=== PATIENT | female | born 1965 | race Caucasian/White ===

== ENCOUNTER 2018-07-22 11:51 | Emergency (ER) | payer BC, OTHER ==
--- NOTE | 2018-07-22 13:28 | UC ---
FLU HPI - HPI Summary HPI Summary: 52 yo female presents with fatigue, low grade fever, body aches, and loose stools since yesterday. She tells me that her symptoms were sudden onset. 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 She is concerned that she may have the flu as well. Has been taking ibuprofen for her symptoms with little relief. Denies SOB, rash, vomiting, abdominal pain, dysuria. - History of Current Complaint Stated Complaint: FLU SXS Time Seen by Provider: 07/22/18 13:28 Hx Obtained From: Patient Hx Last Menstrual Period: UTERINE ABLATION Onset/Duration: Sudden Onset Severity Currently: Moderate Severity Initially: Moderate Pain Intensity: 6 Pain Scale Used: 0-10 Numeric - Allergy/Home Medications Allergies/Adverse Reactions: Allergies Allergy/AdvReac Type Severity Reaction Status Date / Time No Known Allergies Allergy Verified 07/22/18 13:31 Home Medications: Home Medications Magnesium Oxide [Magnesium] 400 mg PO DAILY 07/22/18 [History Confirmed 07/22/18 ] Rosuvastatin Calcium 5 mg PO DAILY 07/22/18 [History Confirmed 07/22/18] PMH/Surg Hx/FS Hx/Imm Hx - Additional Past Medical History Additional PMH: Chronic pain Endocrine History: Dyslipidemia - Surgical History Surgical History: Yes Surgery Procedure, Year, and Place: Uterine Ablation, 2012. [place] Procedure ( Plantar Fasciatis) - Right, 2013 - Family History Known Family History: Positive: Cardiac Disease, Hypertension, Diabetes, Renal Disease - Social History Occupation: Employed Full-time Lives: With Family Alcohol Use: Occasionally Substance Use Type: None Smoking Status (MU): Never Smoked Tobacco Review of Systems All Other Systems Reviewed And Are Negative: Yes Constitutional: Positive: Fever, Chills, Fatigue, Other - Body aches Skin: Positive: Negative Eyes: Positive: Negative ENT: Positive: Negative Respiratory: Positive: Negative Cardiovascular: Positive: Negative Neurovascular: Positive: Negative Neurological: Positive: Negative Psychological: Positive: Negative Physical Exam - Summary Physical Exam Summary: GENERAL: NAD. WDWN. No pain distress. SKIN: No rashes, sores, lesions, or open wounds. HEENT: Head: AT/NC Eyes: EOM intact. Conjunctiva clear without inflammation or discharge. Ears: Hearing grossly normal. TMs intact, no bulging, erythema, or edema. Nose: Nasal mucosa pink and moist. NTTP maxillary and frontal sinus. Throat: Posterior oropharynx without exudates, erythema, or tonsillar enlargement. Uvula midline. NECK: Supple. Nontender. No lymphadenopathy. CHEST: CTAB. No r/r/w. No accessory muscle use. Breathing comfortably and in no distress. CV: RRR. Without m/r/g. Pulses intact. Cap refill <2seconds NEURO: Alert. PSYCH: Age appropriate behavior. Triage Information Reviewed: Yes Vital Signs: Vital Signs: Temp Pulse Resp BP Pulse Ox 99.3 F 87 16 121/73 99 07/22/18 13:32 07/22/18 13:32 07/22/18 13:32 07/22/18 13:32 07/22/18 13:32 Laboratory Tests 07/22/18 13:43 Influenza A (Rapid) Negative Influenza B (Rapid) Negative Vital Signs Reviewed: Yes Flu Course/Dx - Course Course Of Treatment: POC flu negative. Suspect viral or flu-like illness. Advised to rest and drink plenty of clear fluids. - Differential Dx/Diagnosis Provider Diagnosis: Viral syndrome Discharge - Sign-Out/Discharge Documenting (check all that apply): Patient Departure All imaging exams completed and their final reports reviewed: No Studies - Discharge Plan Condition: Stable Disposition: HOME Patient Education Materials: Viral Syndrome (ED) Forms: *Work Release Referrals: Jeri Flores NP [Primary Care Provider] - Additional Instructions: If you develop a fever, shortness of breath, chest pain, new or worsening symptoms - please call your PCP or go to the ED. - Billing Disposition and Condition Condition: STABLE Disposition: Home
[2018-07-22 13:36] VITALS: BP 121/73
[2018-07-22 13:55] LABS: Influenza A Molecular NEGATIVE (Negative); Influenza B Molecular NEGATIVE (Negative)
== END 2018-07-22 14:07 | disposition home or self-care (01) ==
LOC: UCCORT 11:51
DX: R53.83 Other fatigue (principal); B34.9 Viral infection, unspecified; R52 Pain, unspecified; R19.7 Diarrhea, unspecified; E78.5 Hyperlipidemia, unspecified; Z79.899 Other long term (current) drug therapy
CPT/HCPCS: 99211; G0463

== ENCOUNTER 2019-04-27 15:36 | Emergency (ER) | payer BC ==
[2019-04-27 16:32] VITALS: BP 132/82
--- NOTE | 2019-04-27 17:09 | UC ---
Complaint Female HPI - HPI Summary HPI Summary: 53-year-old female comes in with a chief complaint of burning with urination and increased urinary frequency. Patient's had urinary tract infections in the past and she feels like that's what this is. She does get some suprapubic tenderness at times. No constant anterior abdominal pain. No flank pain. No fevers. - History Of Current Complaint Chief Complaint: UCGU Stated Complaint: URINARY Time Seen by Provider: 04/27/19 16:59 Hx Last Menstrual Period: doesn't get Pain Intensity: 2 - Allergies/Home Medications Allergies/Adverse Reactions: Allergies Allergy/AdvReac Type Severity Reaction Status Date / Time No Known Allergies Allergy Verified 04/27/19 16:33 PMH/Surg Hx/FS Hx/Imm Hx Previously Healthy: Yes - Surgical History Surgical History: Yes Surgery Procedure, Year, and Place: Uterine Ablation, 2012. [place] Procedure ( Plantar Fasciatis) - Right, 2013. LEFT WRIST x2 - Family History Known Family History: Positive: None, Cardiac Disease, Hypertension, Diabetes, Renal Disease - Social History Alcohol Use: Occasionally Substance Use Type: None Smoking Status (MU): Never Smoked Tobacco Review of Systems All Other Systems Reviewed And Are Negative: Yes Constitutional: Positive: Negative Skin: Positive: Negative Eyes: Positive: Negative ENT: Positive: Negative Respiratory: Positive: Negative Cardiovascular: Positive: Negative Gastrointestinal: Positive: Other - see hpi Genitourinary: Positive: Dysuria, Frequency, Urgency Motor: Positive: Negative Neurovascular: Positive: Negative Musculoskeletal: Positive: Negative Neurological: Positive: Negative Psychological: Positive: Negative Is Patient Immunocompromised?: No Physical Exam Triage Information Reviewed: Yes Appearance: Well-Appearing, No Pain Distress, Well-Nourished Vital Signs: Initial Vital Signs Temp 98.2 F 04/27/19 16:29 Pulse 85 04/27/19 16:29 Resp 14 04/27/19 16:29 BP 132/82 04/27/19 16:29 Pulse Ox 100 04/27/19 16:29 Vital Signs Reviewed: Yes Eye Exam: Normal Eyes: Positive: Conjunctiva Clear Neck: Positive: Supple Respiratory: Positive: Lungs clear, Normal breath sounds, No respiratory distress Cardiovascular: Positive: RRR Abdomen Description: Negative: CVA Tenderness (R), CVA Tenderness (L) Neurological: Positive: Alert Psychological: Positive: Age Appropriate Behavior Skin Exam: Normal Complaint Female Dx - Differential Dx/Diagnosis Provider Diagnosis: UTI (urinary tract infection) Discharge ED - Sign-Out/Discharge Documenting (check all that apply): Patient Departure All imaging exams completed and their final reports reviewed: No Studies - Discharge Plan Condition: Stable Disposition: HOME Prescriptions: Cephalexin CAP* [Keflex CAP*] 500 mg PO TID #21 cap Patient Education Materials: Urinary Tract Infection in Women (ED) Referrals: Akiko Rodriguez MD [Primary Care Provider] - Additional Instructions: FOLLOW UP WITH YOUR DOCTOR IF NOT COMPLETELY IMPROVED. GET REEVALUATED SOONER IF NOT IMPROVING OR WORSE OR ANY QUESTIONS OR CONCERNS. - Billing Disposition and Condition Condition: STABLE Disposition: Home
== END 2019-04-27 17:12 | disposition home or self-care (01) ==
LOC: UCCORT 15:36
DX: N39.0 Urinary tract infection, site not specified (principal)
CPT/HCPCS: 81003; 87086; 99212; G0463

== ENCOUNTER 2019-07-30 18:38 | Emergency (ER) | payer BC ==
--- OUTSIDE RECORDS SUMMARY | 2019-07-30 18:48 | XMS REPORT | Continuity of Care Document ---
:1965 External Reference #:[id number] Author Name Vianey Hillman FNP (transmitted by agent of provider Ronald Duran) Address [address] [place] [id number] Care Team Providers Name Role Phone Akiko Rodriguez MD, PHD - Family Care Team Information [employer] [phone] Medicine Problems Active Problems Provider Date Hyperlipidemia Anish Wang M.D., Onset: 09/30/2013 [facility] Closed fracture of hamate bone of wrist Alexia Leal PA Onset: 02/18/2016 Closed fracture of base of fifth Alexia Leal PA Onset: 02/18/2016 metacarpal Nondisplaced fracture of base of fourth Alexia Leal PA Onset: 02/18/2016 metacarpal bone, left hand, initial encounter for closed fracture Carpal joint sprain Alexia Leal PA Onset: 02/27/2016 Pure hypercholesterolemia Cinthia De Paz, Onset: 11/19/2017 [facility] Mitral valve disorder Cinthia De Paz, Onset: 11/19/2017 [facility] Dysphagia Akiko Rodriguez MD, PHD Onset: 03/16/2019 Gastro-esophageal reflux disease with Akiko Rodriguez MD, PHD Onset: 2018 esophagitis Localized, primary osteoarthritis Akiko Rodriguez MD, PHD Onset: 05/31/2019 Social History Type Date Description Comments Sex Unknown Tobacco Use Start: Unknown Never Smoked Cigarettes ETOH Use Occasionally consumes alcohol 0-4/week Tobacco Use Start: Unknown Patient has never smoked Smoking Status Reviewed: 01/24/20 Patient has never smoked Allergies, Adverse Reactions, Alerts Description No Known Drug Allergies Medications Active Medications SIG Qnty Indications Ordering Date Provider Nitrofurantoin Monohyd 1 tab by mouth 10caps N39.0 Ronald Duran, 2019 Macro twice a day 100mg Capsules Phenazopyridine HCL 1 tab by mouth 14tabs N39.0 Ronald Duran, 07/01/2019 200mg every 8 hours MD Tablets as needed for dysuria Vitamin K2-Vitamin D3 2 cap by mouth Unknown every day after [id number] Capsules meals History Medications Diflucan 1 tab by mouth as 1tabs Akiko Rodriguez, 04/28/2019 - 150mg once , PHD 05/31/2019 Tablets Benzonatate take one tab 30caps J06.9 Edie, 04/20/2019 - 100mg orally three times Coleen M., 05/31/2019 Capsules a day as needed [employer] for cough Amoxicillin/Clavulan 1 by mouth twice a 20tabs J01.00 Edie, 2018 - ate Potassium day Coleen M., 04/28/2019 [employer] 875-125mg Tablets No Active Unknown 03/16/2019 - Medications 03/16/2019 Esomeprazole tab by mouth every 30caps R13.10 Akiko Rodriguez, 03/16/2019 - Magnesium day before meals , PHD 05/31/[address] Vitamin D 1 caps by mouth 90caps R13.10 Akiko Rodriguez, 03/16/2019 - 50mcg (2000 every day , PHD 07/01/2019 Ms) Capsules Famotidine 1 tab by mouth 60tabs R13.10 Akiko Rodriguez, 03/16/2019 - 20mg twice a day after , PHD 05/31/2019 Tablets 1 month of esoprazole to wean down acid blocking. Immunizations CPT Code Status Date Vaccine Lot # [id number] Given 03/16/2019 Influenza Virus Vaccine, Quadrivalent, 36 Mos+, [id number] Given 03/05/2017 Influenza Virus Vaccine Quadrivalent [id number] [id number] [id number] Given 09/20/2015 Tdap injection [id number] Given 03/17/2013 flu vaccination [id number] Given 04/06/2007 Tetnus Injection Vital Signs Date Vital Result Comment 07/01/2019 10:02am Body Temperature 97.4 F Heart Rate 84 /min Respiratory Rate 18 /min Weight 230.12 lb Pain Level 4 O2 % BldC Oximetry 98 % 05/31/2019 10:46am BP Systolic 137 mmHg BP Diastolic 88 mmHg Body Temperature 98.1 F Heart Rate 78 /min Respiratory Rate 16 /min Height 70 inches 5'10" Weight 233.00 lb BMI (Body Mass Index) 33.4 kg/m2 BSA (Body Surface Area) 2.23 m2 [place] body weight in kilograms 68 kg O2 % BldC Oximetry 97 % Results Test Acquired Date Facility Test Result H/L Range Note Culture Urine 07/01/2019 [facility] Inhouse Culture Urine <pending> Routine Urine Dipstick 07/01/2019 [facility] Inhouse Ua Color light yellow Yellow Ua Clarity cloudy Clear Ua Leuko 2+ High Negative Ua Nitrite neg Negative Ua Urobilinogen neg Low 0.2 - 1.0 E.U./dL Ua Protein +- Negative Ua PH 6.0 Low 6.5-7.5 Ua Blood 3+ High Negative Ua Specific [place] 1.005 Low 1.010-1.030 Ua Ketones neg Negative Ua Bilirubin neg Negative Ua Glucose neg Negative CBC W/Automated 05/31/2019 [facility] White Blood 5.3 K/uL Normal 3.1-10.[address] [place] [address] [phone] Red Blood Count 4.82 M/uL Normal 3.90-5.40 Hemoglobin 14.3 gm/dL Normal 11.6-15.8 Hematocrit 43.7 % Normal 36.0-46.1 Mean Cell Volume 90.7 fl Normal 80.9-99.0 Mean Corpuscular HGB 29.7 pg Normal 25.9-32.7 Mean Corpuscular HGB Conc 32.7 g/dL Normal 30.8-34.3 Platelet Count 241 K/uL Normal 155-360 Red Cell Distri Width SD 42.6 fl Normal 36-47 Red Cell Distri Width %CV 12.8 % Normal 11.7-14.4 Mean Platelet Volume 10.4 fl Normal 8.9-12.4 Neut% 63.3 % Normal 40.4-72.8 Lymph % 26.1 % Normal 20.0-42.0 [place] % 6.4 % Normal 4.3-13.2 Eo% 2.5 % Normal 0.0-6.6 Bas% 1.1 % Normal 0.0-1.1 Immature Grans 0.6 % Normal 0.0-5.0 NRBC % 0.0 /100WBC < 10/ 100 WBC Neut# 3.35 K/uL Normal 1.8-7.0 Lymph # 1.38 K/uL Normal 1.0-4.0 [place] # 0.34 K/uL Normal 0.3-0.9 Eos # 0.13 K/uL Normal 0.0-0.5 Baso # 0.06 K/uL Normal 0.0-0.1 Immature Grans Absolute 0.03 K/uL NRBC # 0.00 K/uL Comprehensive 05/31/2019 [facility] Glucose 94 mg/dL Normal 74-106 Metabolic Panel [address] [place] [address] [phone] BUN 9 mg/dL Normal 7-18 Creatinine 0.9 mg/dL Normal 0.6-1.3 Glom Filtration Rate, Estimate >60 mL/min >60 If >60 mL/min >60 2 BUN/Creat 10.0 ratio Sodium 139 mmol/L Normal 136-145 Potassium 4.2 mmol/L Normal 3.5-5.1 Chloride 110 mmol/L High 98-107 Carbon Dioxide 24 mmol/L Normal 21-32 Anion Gap 5 mEq/L Low 8-16 Calcium 9.1 mg/dL Normal 8.5-10.1 Total Protein 7.7 g/dL Normal 6.4-8.2 Albumin 3.9 g/dL Normal 3.4-5.0 Globulin 3.8 g/dL Normal 1.9-4.3 Alb/Glob 1.0 ratio Bilirubin,Total 0.3 mg/dL Normal 0.2-1.0 Sgot/Ast 21 U/L Normal 15-37 SGPT/Alt 25 U/L Normal 12-78 Alkaline Phosphatase 93 U/L Normal 45-117 Glycohemoglobin 05/31/2019 [facility] Glycohemoglobin 5.1 % Normal 4.2-6.[address] (A1c) [place], [place] [id number] [phone] eAG 100 mg/dL LDL Cholesterol 05/31/2019 [facility] Cholesterol 248 mg/dL High <200 4 Profile [address] [place], [place] [id number] [phone] Triglycerides 75 mg/dL <150 5 HDL Cholesterol 88 mg/dL >40 6 LDL-Cholesterol 145 mg/dL < 100 7 Laboratory 05/31/2019 [facility] Vitamin 7.7 ng/mL Low 30.0-100.0 8 test finding [address] [facility] [address],25-Hydroxy [place], [place] [id number] [phone] Thyroid Stim Hormone 2.15 uIU/mL Normal 0.30-4.20 Urine Culture 05/31/2019 [facility] Urine Culture URETHRAL ANDRE [address] [place] [address] [phone] Quantity 10,000 - 50,000 <SEE NOTE> 9 Ua RFX Micro & 05/31/2019 [facility] Urine Color Colorless Yellow Culture II [address] [place] [address] [phone] Urine Clarity Clear Clear Urine Glucose - Dipstick NEGATIVE mg/dL Negative Urine Bilirubin - Dipstick NEGATIVE Negative Urine Ketone NEGATIVE mg/dL Negative Urine Specific [place] < 1.005 Low 1.010-1.030 Urine Blood NEGATIVE Negative Urine PH 5.5 Low 6.5-7.5 Urine Protein - Dipstick NEGATIVE mg/dL Negative Urine Urobilinogen - Dipstick < 2.0 mg/dL < 2.0 Urine Nitrite - Dipstick NEGATIVE Negative Urine Leuk Esterase NEGATIVE Negative Source: URINE, CLEAN CAT <SEE NOTE> 10 Protein/Creatinine 05/31/2019 [facility] Creatinine,Urine 17.4 Not Ratio,Urine [facility] [place]. [place], [place] [id number] [phone] Protein,Total,Urine 13.0 mg/dL Not Estab. Protein/Creatinine Ratio 747 MG/GCRE High 0-200 11 Urine Culture And 04/27/2019 [facility] Urine SEE RESULT 12, 13 Sensitivities [phone] Culture BELOW Poc Urinalysis 04/27/2019 [facility] Poc Negative Negative [phone] Glucose, Urine Poc Bilirubin, Urine Negative Negative Poc Ketone, Urine Negative Negative Poc Specific [place], Urine <= 1.005 Low 1.010-1.030 Poc Blood, Urine Trace-intact Abnormal Negative Poc pH, Urine 5.0 Normal 5-9 Poc Protein, Urine Negative Negative Poc Urobilinogen, Urine 0.2 Negative Poc Nitrite, Urine Negative Negative Poc Leukocytes, Urine 3+ Abnormal Negative Poc Color, Urine Yellow Poc Clarity, Urine Clear 14 1 Z00.00 Z13.1 Z13.220 E55.9 E07.9 R30.0 R35.0 2 Note: Persistent reduction for 3 months or more in an eGFR <60 mL/min/1.73 m2 defines CKD. Patients with eGFR values >/=60 mL/min/1.73 m2 may also have CKD if evidence of persistent proteinuria is present. The original MDRD equation for estimated GFR is not valid for patients less than 18 years of age. Additional information may be found at www.kdoqi.org. 3 Elevated levels of HbA1c suggest the need for more aggressive treatment of glycemia. The [place] [employer] recommends that a primary goal of therapy should be a HbA1c of <7% and that physicians should re-evaluate the treatment regimen in patients with HbA1c values consistently >8%. 4 Reference Guidelines*: Desirable: ........... < 200 mg/dL Borderline High: ..... 200-239 mg/dL High: ................ >= 240 mg/dL * The National Cholesterol Education Program (NCEP) 5 Reference Guidelines*: Normal: ............. < 150 mg/dL Borderline High: .... 150-199 mg/dL High: ............... 200-499 mg/dL Very High: .......... > 500 mg/dL * Source: National Cholesterol Education Program (NCEP) 6 Reference Guidelines*: Low HDL: ..... < 40 mg/dL Normal: ..... 40-60 mg/dL Desirable: ... > 60 mg/dL *The National Cholesterol Education Program(NCEP) 7 Reference Guidelines*: Optimal:........... <100 mg/dL Near Optimal....... 100-129 mg/dL Borderline High.... 130-159 mg/dL High............... 160-189 mg/dL Very High.......... >=190 mg/dL * Source: National Cholesterol Education Program (NCEP) 8 Vitamin D deficiency has been defined by the [place] of [employer] and an Endocrine Society practice guideline as a level of serum 25-OH vitamin D less than 20 ng/mL (1,2). The Endocrine Society went on to further define vitamin D insufficiency as a level between 21 and 29 ng/mL (2). 1. IOM ([place] of [employer]). 2010. Dietary reference intakes for calcium and D. [place]: The National Academies Press. 2. Sina MF, Keshawn ALVAREZ, Diana REYNOLDS, et al. Evaluation, treatment, and prevention of vitamin D deficiency: an Endocrine Society clinical practice guideline. JCEM. 2010; 96(7):1911-30. Performed at: - [facility] [id number] Helpdesk Administrator: Liat Hung MD, Phone: [phone] 10,000 - 50,000 CFU/mL 10 URINE, CLEAN CATCH 11 INFCE Result Units: mg/g creat Performed at: [facility] [place] [facility] [address] [id number] Helpdesk Administrator: Liat Hung MD, Phone: [phone] [id number] 13 SEE RESULT BELOW Name: YASEMIN FUENTES : [address]: Luis Rivers MD Acct: [id number] Unit: [id number] AGE: 53 Location: [facility] Re04/27/19 SEX: F Status: DEP ER SPEC: [id number] GLEN: 04/27/19-1644 [facility] DR: Luis Rivers MD REQ: [id number] RECD: 04/28/19 STATUS: LASHANDA WARD DR: Akiko Rodriguez MD _ SOURCE: URINE SPDESC: ORDERED: Urine Culture COMMENTS: [id number] QUERIES: Urine Source: Random Procedure Result Reported Site Urine Culture Final 04/29/19- 1017 ML No growth of clinically significant organisms * ML - Main Lab . END OF REPORT DEPARTMENT OF PATHOLOGY, [address] [place] [address] Tariq Garcia M.D. Director [facility] # [id number] 14 Media Clerk: [id number] Procedures Date Code Description Status 11/18/2016 [id number] Mammogram Completed 03/23/2015 [id number] Colonoscopy Completed Medical Devices Description No Information Available Encounters Type Date Location Provider Dx Diagnosis Office Visit 07/01/2019 Walk In Clinic Vianey Hillman, N39.0 Urinary tract 10:00a [employer] infection, site not specified Office Visit 05/31/2019 Family Medicine Akiko Rodriguez, Z00.00 Encntr for general 10:45a Christiano Zhao MD, PHD adult medical exam w/o abnormal findings R35.0 Frequency of micturition E55.9 Vitamin D deficiency, unspecified E07.9 Disorder of thyroid, unspecified R30.0 Dysuria M17.12 Unilateral primary osteoarthritis, left knee Z13.1 Encounter for screening for diabetes mellitus Z13.220 Encounter for screening for lipoid disorders Office Visit 04/20/2019 4:45p Walk In [facility], J06.9 Acute upper Clinic Coleen M., [employer] respiratory infection, unspecified R05 Cough Office Visit 04/01/2019 Walk In Clinic [facility], J01.00 Acute maxillary 2:30p Coleen M., [employer] sinusitis, unspecified Office Visit 03/16/2019 [facility] Akiko Rodriguez, R13.10 Dysphagia, 3:00p Kandy Alvarado MD, PHD unspecified Main K21.0 Gastro-esophageal reflux disease with esophagitis Z23 Encounter for immunization Assessments Date Code Description Provider 07/01/2019 N39.0 Urinary tract infection, site not Vianey Hillman FNP specified 05/31/2019 Z00.00 Encounter for general adult medical Akiko Rodriguez MD, PHD examination without abnormal findings 05/31/2019 R35.0 Frequency of micturition Akiko Rodriguez MD, PHD 05/31/2019 E55.9 Vitamin D deficiency, unspecified Akiko Rodriguez MD, PHD 05/31/2019 E07.9 Disorder of thyroid, unspecified Akiko Rodriguez MD, PHD 05/31/2019 R30.0 Dysuria Akiko Rodriguez MD, PHD 05/31/2019 M17.12 Unilateral primary osteoarthritis, Akiko Rodriguez MD, PHD left knee 05/31/2019 Z13.1 Encounter for screening for Akiko Rodriguez MD, PHD diabetes mellitus 05/31/2019 Z13.220 Encounter for screening for lipoid Akiko Rodriguez MD, PHD disorders 04/20/2019 J06.9 Acute upper respiratory infection, Coleen Irizarry, [employer] unspecified 04/20/2019 R05 Cough Coleen Irizarry, [employer] 04/01/2019 J01.00 Acute maxillary sinusitis, Coleen Irizarry, [employer] unspecified 03/16/2019 R13.10 Dysphagia, unspecified Akiko Rodriguez MD, PHD 03/16/2019 K21.0 Gastro-esophageal reflux disease Akiko Rodriguez MD, PHD with esophagitis 03/16/2019 Z23 Encounter for immunization Akiko Rodriguez MD, PHD Plan of Treatment 07/01/2019 - Vianey Hillman FNPN39.0 Urinary tract infection, site not specifiedNew Medication:Nitrofurantoin Monohyd Macro 100 mg - 1 tab by mouth twice a dayPhenazopyridine HCL 200 mg - 1 tab by mouth every 8 hours as needed for dysuriaComments:Drink plenty of water.Do not delay urinating when you feel the need to urinate. Wipe from front to back to keep rectal bacteria from getting into the vagina and urethra. Avoid using irritating cosmetics or chemicals in the area of the vagina and urethra (such as strong soaps, feminine hygiene sprays or douches, or scented napkins). Empty your bladder completely when you urinate. If new or worseningsymptoms such as high fever or vomiting occur then go to the ER for evaluation, otherwise followup with your primary doctor within 5 days for recheck. Functional Status Functional Condition Comment Date Status Independent with all ADL's Active Glasses Active Mental Status Description No Information Available Referrals Description No Information Available
--- OUTSIDE RECORDS SUMMARY | 2019-07-30 18:48 | XMS REPORT | Continuity of Care Document ---
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 Medicine Problems Active Problems Provider Date Hyperlipidemia Anish Wang M.D., Onset: 09/30/2013 [facility] Closed fracture of hamate bone of wrist Alexia Leal PA Onset: 02/18/2016 Closed fracture of base of fifth Alexia Leal PA Onset: 02/18/2016 metacarpal Nondisplaced fracture of base of fourth Alexia Leal PA Onset: 02/18/2016 metacarpal bone, left hand, initial encounter for closed fracture Carpal joint sprain Alexia Leal PA Onset: 02/27/2016 Pure hypercholesterolemia Cinthia De Paz, Onset: 11/19/2017 MSN, HANDMADE TILE ARTIST Mitral valve disorder Cinthia De Paz, Onset: 11/19/2017 MSN, CONRAD Dysphagia Akiko Rodriguez MD, PHD Onset: 03/16/2019 Gastro-esophageal reflux disease with Akiko Rodriguez MD, PHD Onset: 2018 esophagitis Localized, primary osteoarthritis Akiko Rodriguez MD, PHD Onset: 05/31/2019 Social History Type Date Description Comments Sex Unknown Tobacco Use Start: Unknown Never Smoked Cigarettes ETOH Use Occasionally consumes alcohol 0-4/week Tobacco Use Start: Unknown Patient has never smoked Smoking Status Reviewed: 07/04/19 Patient has never smoked Allergies, Adverse Reactions, Alerts Description No Known Drug Allergies Medications Active Medications SIG Qnty Indications Ordering Date Provider Benazepril HCL 1 by mouth 90Tablet Jennifer, 07/04/2019 10mg Tablets every day MD Akiko, PHD Nitrofurantoin Monohyd 1 tab by mouth 10caps N39.0 Ronald Duran, 2019 Macro twice a day 100mg Capsules Phenazopyridine HCL 1 tab by mouth 14tabs N39.0 Ronald Duran, 07/01/2019 200mg every 8 hours Tablets as needed for dysuria Vitamin K2-Vitamin D3 2 cap by mouth Unknown every day after [id number] meals Capsules History Medications Diflucan 1 tab by mouth as 1tabs Akiko Rodriguez, 04/28/2019 - 150mg once , PHD 05/31/2019 Tablets Benzonatate take one tab 30caps J06.9 [facility] 04/20/2019 - 100mg orally three times Coleen Divya, 05/31/2019 Capsules a day as needed HAND[employer]ADE TI[employer] ARTIST for cough Amoxicillin/Clavulan 1 by mouth twice a 20tabs J01.00 Tamez-Cam, 2018 - ate Potassium day Coleen M., 04/28/2019 HANDMADE TILE ARTIST 875-125mg Tablets No Active Unknown 03/16/2019 - Medications 03/16/2019 Esomeprazole tab by mouth every 30caps R13.10 Akiko Rodriguez, 03/16/2019 - Magnesium day before meals , PHD 05/31/[address] Vitamin D 1 caps by mouth 90caps R13.10 Akiko Rodriguez, 03/16/2019 - 50mcg (2000 every day , PHD 07/01/2019 Ut) Capsules Famotidine 1 tab by mouth 60tabs R13.10 Akiko Rodriguez, 03/16/2019 - 20mg twice a day after , PHD 05/31/2019 Tablets 1 month of esoprazole to wean down acid blocking. Immunizations CPT Code Status Date Vaccine Lot # [id number] Given 03/16/2019 Influenza Virus Vaccine, Quadrivalent, 36 Mos+, [id number] Given 03/05/2017 Influenza Virus Vaccine Quadrivalent Iiv4 [id number] [id number] Given 09/20/2015 Tdap injection [id number] Given 03/17/2013 flu vaccination [id number] Given 04/06/2007 Tetnus Injection Vital Signs Date Vital Result Comment 07/04/2019 8:22am BP Systolic 132 mmHg BP Diastolic 86 mmHg Body Temperature 98.0 F Heart Rate 68 /min Respiratory Rate 16 /min Height 70.5 inches 5'10.50" Weight 229.00 lb BMI (Body Mass Index) 32.4 kg/m2 BSA (Body Surface Area) 2.22 m2 [place] body weight in kilograms 69 kg O2 % BldC Oximetry 97 % 07/01/2019 10:02am Body Temperature 97.4 F Heart Rate 84 /min Respiratory Rate 18 /min Weight 230.12 lb Pain Level 4 O2 % BldC Oximetry 98 % Results Test Acquired Date Facility Test Result H/L Range Note Culture Urine 07/01/2019 P Inhouse Culture Urine <pending> Routine Urine Dipstick 07/01/2019 [facility] Inhouse Ua Color light yellow Yellow Ua Clarity cloudy Clear Ua Leuko 2+ High Negative Ua Nitrite neg Negative Ua Urobilinogen neg Low 0.2 - 1.0 E.U./dL Ua Protein +- Negative Ua PH 6.0 Low 6.5-7.5 Ua Blood 3+ High Negative Ua Specific [place] 1.005 Low 1.010-1.030 Ua Ketones neg Negative Ua Bilirubin neg Negative Ua Glucose neg Negative CBC W/Automated 05/31/2019 [facility] White Blood 5.3 K/uL Normal 3.1-10.[address] [place] [address] [phone] Red Blood Count 4.82 M/uL Normal 3.90-5.40 [...] 40.4-72.8 Lymph % 26.1 % Normal 20.0-42.0 Knott % 6.4 % Normal 4.3-13.2 Eo% 2.5 % Normal 0.0-6.6 Bas% 1.1 % Normal 0.0-1.1 Immature Grans 0.6 % Normal 0.0-5.0 NRBC % 0.0 /100WBC < 10/ 100 WBC Neut# 3.35 K/uL Normal 1.8-7.0 Lymph # 1.38 K/uL Normal 1.0-4.0 Knott # 0.34 K/uL Normal 0.3-0.9 Eos # 0.13 K/uL Normal 0.0-0.5 Baso # 0.06 K/uL Normal 0.0-0.1 Immature Grans Absolute 0.03 K/uL NRBC # 0.00 K/uL Comprehensive 05/31/2019 [facility] Glucose 94 mg/dL Normal 74-106 Metabolic Panel [address] [place], [place] [id number] [phone] BUN 9 mg/dL Normal 7-18 Creatinine 0.9 [...] Phosphatase 93 U/L Normal 45-117 Glycohemoglobin 05/31/2019 [facility] Glycohemoglobin 5.1 % Normal 4.2-6.[address] (A1c) [place] [address] [phone] eAG 100 mg/dL LDL Cholesterol 05/31/2019 [facility] Cholesterol 248 mg/dL High <200 4 Profile [address] [place] [address] [phone] Triglycerides 75 mg/dL <150 5 HDL Cholesterol 88 mg/dL >40 6 LDL-Cholesterol 145 mg/dL < 100 7 Laboratory 05/31/2019 [facility] Vitamin 7.7 ng/mL Low 30.0-100.0 8 test finding [address] [facility] [address] [phone] Thyroid Stim Hormone 2.15 uIU/mL Normal 0.30-4.20 Urine Culture 05/31/2019 [facility] Urine Culture URETHRAL ANDRE [address] [place] [address] [phone] Quantity 10,000 - 50,000 <SEE NOTE> 9 Ua RFX Micro & 05/31/2019 [facility] Urine Color Colorless Yellow Culture II [address] [place] [address] [phone] Urine Clarity Clear Clear Urine Glucose - Dipstick NEGATIVE mg/dL Negative Urine Bilirubin - Dipstick NEGATIVE Negative Urine Ketone NEGATIVE mg/dL Negative Urine Specific [place] < 1.005 Low 1.010-1.030 Urine Blood NEGATIVE Negative Urine PH 5.5 Low 6.5-7.5 Urine Protein - Dipstick NEGATIVE mg/dL Negative Urine Urobilinogen - Dipstick < 2.0 mg/dL < 2.0 Urine Nitrite - Dipstick NEGATIVE Negative Urine Leuk Esterase NEGATIVE Negative Source: URINE, CLEAN CAT <SEE NOTE> 10 Protein/Creatinine 05/31/2019 [facility] Creatinine,Urine 17.4 Not Ratio,Urine [address] mg/dL [place]ab. [place], [place] [id number] [phone] Protein,Total,Urine 13.0 mg/dL Not Estab. Protein/Creatinine Ratio 747 MG/GCRE High 0-200 11 Urine Culture And 04/27/2019 [facility] Urine SEE RESULT 12, 13 Sensitivities [phone] Culture BELOW Poc Urinalysis 04/27/2019 [facility] Poc Negative Negative [phone] Glucose, Urine Poc Bilirubin, Urine Negative Negative Poc Ketone, Urine Negative Negative Poc Specific [place], Urine <= 1.005 Low 1.010-1.030 Poc Blood, [...] for more aggressive treatment of glycemia. The [place] Diabetes Association recommends that a primary goal [...] D deficiency has been defined by the Anderson of Medicine and an Endocrine Society practice guideline as a level of serum 25-OH vitamin D less than 20 ng/mL (1,2). The Endocrine Society went on to further define vitamin D insufficiency as a level between 21 and 29 ng/mL (2). 1. IOM (Anderson of Medicine). 2010. Dietary reference intakes for calcium and D. [place]: The National Academies Press. 2. Sina MF, Keshawn NC, Diana REYNOLDS, et al. Evaluation, treatment, and prevention of vitamin D deficiency: an Endocrine Society clinical practice guideline. JCEM. 2010; 96(7):1911-30. Performed at: RN - [facility] [address] [id number] Tax Appraiser: Liat Hung MD, Phone: [phone] 10,000 - 50,000 CFU/mL 10 URINE, CLEAN CATCH 11 INFCE Result Units: mg/g creat Performed at: RN - [facility] [address] [id number] Tax Appraiser: Liat Hung MD, Phone: [phone] [id number] SEE RESULT BELOW Name: YASEMIN FUENTES : [address]: Luis Rivers MD Acct: [id number] Unit: [id number] AGE: 53 Location: [facility] Re04/27/19 SEX: F Status: DEP ER SPEC: [id number] GLEN: 04/27/19-1644 [facility] DR: Luis Rivers MD REQ: [id number] RECD: 04/28/19 STATUS: LASHANDA WARD DR: Akiko Rodriguez MD _ SOURCE: URINE SPDESC: ORDERED: Urine Culture COMMENTS: [id number] QUERIES: Urine Source: Random Procedure Result Reported Site Urine Culture Final 04/29/19- 1017 ML No growth of clinically significant organisms * ML - Main Lab . END OF REPORT DEPARTMENT OF PATHOLOGY, [address] [place] [address] Tariq Garcia M.D. Director [facility] # [id number] 14 Vending Supervisor: [id number] Procedures Date Code Description Status 11/18/2016 [id number] Mammogram Completed 03/23/2015 [id number] Colonoscopy Completed Medical Devices Description No Information Available Encounters Type Date Location Provider Dx Diagnosis Office Visit 07/04/2019 Family Akiko Yancey MD, R30.0 Dysuria 8:30a [facility] PHD R35.0 Frequency of micturition R31.9 Hematuria, unspecified I10 Essential (primary) hypertension Office Visit 07/01/2019 10:00a [facility] Isi, N39.0 Urinary tract CONRAD Winters infection, site not specified Office Visit 05/31/2019 10:45a [facility] Medicine Jennifer, Z00.[address] [facility] MD Akiko, general adult PHD medical exam w/o abnormal findings R35.0 Frequency of micturition E55.9 Vitamin D deficiency, unspecified E07.9 Disorder of thyroid, unspecified R30.0 Dysuria M17.12 Unilateral primary osteoarthritis, left knee Z13.1 Encounter for screening for diabetes mellitus Z13.220 Encounter for screening for lipoid disorders Office Visit 04/20/2019 4:45p Walk In [facility], J06.9 Acute upper Clinic Coleen Stokes, HANDMADE TILE ARTIST respiratory infection, unspecified R05 Cough Office Visit [facility] Acute maxillary 2:30p Coleen Stokes, HANDMADE TILE ARTIST sinusitis, unspecified Office Visit 03/16/2019 [facility] Akiko Rodriguez, R13.10 Dysphagia, 3:00p Kandy Alvarado MD, PHD unspecified Main K21.0 Gastro-esophageal reflux disease with esophagitis Z23 Encounter for immunization Assessments Date Code Description Provider 07/04/2019 R30.0 Dysuria Akiko Rodriguez MD, PHD 07/04/2019 R35.0 Frequency of micturition Akiko Rodriguez MD, PHD 07/04/2019 R31.9 Hematuria, unspecified Akiko Rodriguez MD, PHD 07/04/2019 I10 Essential (primary) hypertension Akiko Rodriguez MD, PHD 07/01/2019 N39.0 Urinary tract infection, site not LaBouf, Vianey, HANDMADE TILE ARTIST specified 05/31/2019 Z00.00 Encounter for general adult [...] disorders 04/20/2019 J06.9 Acute upper respiratory infection, Tamez-HelFransisco hernandezve M., HANDMADE TILE ARTIST unspecified 04/20/2019 R05 Cough Tamez-HelmFransiscove M., HANDMADE TILE ARTIST 04/01/2019 J01.00 Acute maxillary sinusitis, Dashawn-Fransisco Levyve M., HANDMADE TILE ARTIST unspecified 03/16/2019 R13.10 Dysphagia, unspecified Akiko Rodriguez MD, PHD 03/16/2019 K21.0 Gastro-esophageal reflux disease Akiko Rodriguez MD, PHD with esophagitis 03/16/2019 Z23 Encounter for immunization Akiko Rodriguez MD, PHD Plan of Treatment 07/04/2019 - Akiko Rodriguez MD, PHDR30.0 DysuriaComments:Discussed no mumps symptoms but developing a scratchy throat today. Discussed getting an MMR boosterbut not done/declined today. Denied symptoms of yeast or atrophy. Denies any history of viral infection like herpes. history of microscopic hematuria, but now having episodes of gross hematuria. Also proteinuria noted last month when asymptomatic. Starting Jose inhibitor today to protect kidneys and treat blood pressure. Need to schedule follow up with urologist.Referral:Bud Wright MD, QmfjudhO82.0 Frequency of micturitionReferral:Bud Wright MD, HbfgmaaB28.9 Hematuria, unspecifiedComments:Sharing info from recent UTIs with Urologist - should schedule a follow up visit.Referral:Bud Wright MD, [id number] Essential (primary) hypertensionComments:PRESSURE POINTS1 What high blood pressure is. Blood pressure is the force that your blood exerts onthe parker of the arteries it flows through, just like water flowing through a garden hose pushes against the hose??s parker. Your blood pressure consists of two numbers. ??Systolic is the pressure on blood vessel parker during heart beats ,?? says Rajinder Peralta, professor of cardiovascular disease prevention at the [employer]. ??Diastolic is the pressure between beats,?? so it??s lower. When people have high blood pressure??also called hypertension??it??s often because blood vessels are too rigid to expand when the heart pumps. It??s as though the hose were made of glass instead of rubber. 2 Everyone is at risk. Why worry about high blood pressure if you haven??t been diagnosed with it? Because, odds are, you eventually will be. ??Over time, 90 percent of people in this country develop hypertension,?? says Lion Zapata, professor of preventive medicine at the [employer]. That??s because blood pressure typically creeps up as youage. In the Atherosclerosis Risk in Communities study, which followed more than 15,000 Americans aged 45 to 64, average systolic blood pressure alvin by five points in five years.1 ??Blood pressures drift upward as people get older and they??re exposed to long-term excess sodium,?? explains Jodi. ??That??s why almost all adults are going to get blood pressures that put them at higher risk for heart disease and stroke.?? But most hypertension is preventable with a healthy diet and exercise, he adds.3 Your risk starts to rise at any blood pressure above ?? normal.?? Doctors used to diagnose patientswith hypertension when their systolic pressure reached NORMAL BLOOD PRESSURE <120/<80 * Recommendations : Healthy lifestyle choices and yearly checks.ELEVATED BLOOD PRESSURE 120-129/& lt;80 * Recommendations: Healthy lifestyle changes, reassessed in 3-6 months.HIGH BLOOD PRESSURE / STAGE 1 130-139/80-89 * Recommendations: 10-year heart disease and stroke risk assessment. If less than 10% risk, lifestyle changes, reassessed in 3-6 months. If higher, lifestyle changes and medication with monthly follow-ups until blood pressure is controlled. HIGH BLOOD PRESSURE / STAGE 2 >140/>90 * Recommendations: Lifestyle changes and 2 different classes of medicine, with monthly follow-ups until blood pressure is controlled.How much diet and exercise can lower your blood pressure Got high blood pressure? You??re in good company.Nearly half of [place] adults now have hypertension, according to recent guidelines from the [place] Heart Association and the [place] College of Cardiology.That means that many people who had ??prehypertension?? according to the old guidelines now have ??stage 1 hypertension.?? Most of them don??t need to start taking drugs to lower their pressure (that depends on other risk factors). Instead, the guidelines recommend a healthy lifestyle.Why? Because it works. Here??s how much your systolic pressure (the higher of your two blood pressure numbers) could fall with diet and exercise, according to the new guidelines:1. Eat a DASH diet: 11 pointsDon??t want to count servings?Start by filling half your plate with fruits and vegetables.A DASH-style diet does it all: protects your heart, piles on the fruits and veggies, and cuts unhealthy carbs. It??s not only low in saturated fat, sugar, and salt, it??s also rich in nutrients like potassium, magnesium, calcium, and fiber.Plus, DASH works for omnivores or vegetarians.2. Exercise: 5 pointsAny kind of exercise helps.All formsof exercise will lower blood pressure, but the best evidence is for aerobic activity. Aim for 90 to 150 minutes a week of aerobics (brisk walking, biking, running, etc.) and/or resistance training (biceps curls, leg presses, etc.).If you??re starting with walking, here??s how to ramp up the intensity gradually.3. Lose weight: 5 pointsDropping extra pounds can lower your pressure.Losing excess weight helps lower blood pressure. Expect about a 1 point drop in systolic pressure for every 2 pounds you lose.4. Cut salt: 5 pointsMost sodium comes from packaged and restaurant foods that don??t even taste salty.To lower blood pressure, cut your sodium by 1,000 milligrams a day, ideally to 1,500 mg a day. Start with these seven foods.Bread. About 100 to 200 mg of sodium per slice is typical. The Sea App and some other brands make it easy to stay at the low end.Cheese. Most types have 150 to 250 mg ofsodium per ounce. Try Indonesian (just 40 to 60 mg) or fresh mozzarella (80 to 100 mg) or just 1 ??slim cut?? or ??thin ?? slice of your favorite variety.Poultry. The salt solution that??s often added to rawchicken or turkey can add 120 mg of sodium to the poultry??s 80 mg of (naturally occurring) sodium. So avoid poultry with labels like ??Contains up to 15% of a solution.??Deli meats. Just 2 oz. can pile 500 to 700 mg of sodium on your sandwich. Get Boar??s Head??s (or another brand??s) ??low-sodium? ? meats that are sliced at the TextbookTime[employer] Textbook Timei counter (about 50 to 80 mg in 2 oz.).Soup. Most soups deliver 600 to 900 mg of sodium per cup. Try Imagine, [place], Dr. Younger??s, Yasemin??s Organic, or [employer] [place]??s ??Light in Sodium?? or ??Reduced Sodium?? soups instead (200 to 400 mg).Pizza. You can easily get 1,000 mg of sodium in 2 slices. Go light on the cheese, and replace meat with veggies (not olives).Restaurant entre??es. Many pack 1,000 to 2,000 mg of sodium. Save half for later. And add a side salad or other veggies to boost potassium.5. Get more potassium: 4 to 5 pointsAnother reason to eat more vegetables: potassium.The goal: Get 3,500 to 5,000 milligrams of potassium a day. You??ll get the most bang for your calorie mcintyre with fruits and vegetables. Some examples: Calories Potassium (mg):Baked potato with skin (1 small) 130 750 Beet greens (?? cup cooked) 20 650 Yellowfin tuna (4 oz. cooked) 201807 Sweet potato with skin (1 small) 130 540 Wild Coho salmon (4 oz. cooked) 160 490 Spinach (?? cupcooked) 20 420 Banana (1) 110 420 Low-fat plain yogurt (6 oz.) 110 400 Fat-free milk (1 cup) 80 380 Cantaloupe (??) 50 370 Lentils (?? cup cooked) 120 370 Wilson beans ( ?? cup cooked) 120 370 Tomato sauce (?? cup) 30 360 Avocado (?? cup) 120 360 Spinach (2 cups raw) 10 340 Shelled edamame (?? cup cooked) 100 340 Crook or nectarine (1) 60 290 [place] sprouts (?? cup cooked) 30 250 [place] (1) 70 240 [place] lettuce (2 cups raw) 10 230 Apple (1) 100 200 6. Limit alcohol: 4 pointsLimiting alcohol helps keep your pressure in check.If you drink, stop at one drink a day for women or two for men.Find this article interesting and useful? Order a copy of Safe & Easy Steps to Lower Your Blood Pressure. Nine out of 10 Americans will eventually have high blood pressure and, with it, an increased risk of stroke, heart attack, diabetes, dementia, and more. Eating the right diet, losing weight, and exercising can keep your pressure under control. And, if you do have hypertension, it can lower your pressureas much as? ?or more than??prescription drugs. This booklet, from the editors of [employer], shows you how. (48 pages)Dr. Rodriguez Can Print this out for you.The information in this post first appeared in [employer] Healthletter in June 2017.WHAT WORKS? If you have high blood pressure, here??s roughly how much of a drop in systolic pressure you can expect from changes in diet and from exercise.Advice ~ What It Means ~ Typical Drop in Systolic Blood Pressure: Maintain a Normal Weight ~ Lose??or don??t gain??excess weight ~ 5 points for every 10 pounds you lose. Follow a DASH Diet ~ Eat a diet: ?? rich in vegetables & fruits ?? that includes whole grains, low-fat dairy, poultry, fish, beans, nuts, & oils ?? low in sugar & red meat ~ 11 pointsCut Sodium ~ Consume no more than 2,400??milligrams a day (1,500 mg a day lowers pressure even more)~ 5 pointsBoost Potassium ~ Shoot for 3,500 to 5,000 milligrams a day, mostly from fruits and vegetables ~ 4-5 pointsExercise ~ Doat least 30 minutes of aerobic activity (like brisk walking) most days of the week ~ 5 pointsLimitAlcohol ~ Men: No more than 2 drinks a day Women: No more than 1 drink a day ~ 4 pointsAllNew Medication:Benazepril HCL 10 mg - 1 by mouth every dayFollow up:recheck blood pressure 2 weeks or so Functional Status Functional Condition Comment Date Status Independent with all ADL's Active Glasses Active Mental Status Description No Information Available Referrals Refer to Reason for Referral Status Appt Date Bud Wright MD 3 episodes of recurrent dysuria and gross Created hematuria with 2+ leukocytes but nothing grown in culture but low amounts of [place] andre each time. Responds to a course of antibiotic - keflex in april, macrobid in june. Other concern is proteinuria when not symptomatic. Currently still with bladder pressure symptoms. [address] [place] [address] [place] [address] [phone]
[2019-07-30 19:26] VITALS: BP 147/83
--- NOTE | 2019-07-30 19:50 | UC ---
Hand/Wrist HPI - HPI Summary HPI Summary: Slipped on ice, fell and hit both wrists. Left one painful. H/O wrist fusion. - History Of Current Complaint Chief Complaint: UCUpperExtremity Stated Complaint: LEFT ARM INJURY S/P FALL Hx Obtained From: Patient Hx Last Menstrual Period: doesn't get ?: No Onset/Duration: Sudden Onset, Lasting Hours - 2, Still Present Severity Initially: Severe Severity Currently: Severe Pain Intensity: 8 Character Of Pain: Dull, Aching, Throbbing Aggravating Factor(s): Movement Alleviating Factor(s): Rest Associated Signs And Symptoms: Positive: Negative Related History: Similar Episode/Dx As - wrist fracture, Dominant Hand Right - Allergies/Home Medications Allergies/Adverse Reactions: Allergies Allergy/AdvReac Type Severity Reaction Status Date / Time No Known Allergies Allergy Verified 07/30/19 19:26 Home Medications: Home Medications Benazepril HCl 10 mg PO DAILY 07/30/19 [History Confirmed 07/30/19] PMH/Surg Hx/FS Hx/Imm Hx Previously Healthy: Yes - Surgical History Surgical History: Yes Surgery Procedure, Year, and Place: Uterine Ablation, 2012. [place] Procedure ( Plantar Fasciatis) - Right, 2013. LEFT WRIST x2 - Family History Known Family History: Positive: Cardiac Disease, Hypertension, Diabetes, Renal Disease - Social History Occupation: Employed Full-time Lives: With Family Alcohol Use: Occasionally Substance Use Type: None Smoking Status (MU): Never Smoked Tobacco Review of Systems All Other Systems Reviewed And Are Negative: Yes Musculoskeletal: Positive: Arthralgia - left wrist Physical Exam Triage Information Reviewed: Yes Appearance: Well-Appearing, Pain Distress - mild, Obese Vital Signs: Initial Vital Signs Temp 98.7 F 07/30/19 19:22 Pulse 88 07/30/19 19:22 Resp 16 07/30/19 19:22 BP 147/83 07/30/19 19:22 Pulse Ox 99 07/30/19 19:22 Vital Signs Reviewed: Yes Eyes: Positive: Conjunctiva Clear Neck exam: Normal Respiratory Exam: Normal Cardiovascular Exam: Normal Musculoskeletal: Positive: ROM Limited @ - left wrist with fusion. Surgical scars. Tender over the dorsum left wrist. No tenderness over the distal radius Neurological Exam: Normal Psychological Exam: Normal Skin Exam: Normal Diagnostics - Radiology No standard instances Radiology Interpretation Completed By: ED Physician Summary of Radiographic Findings: No fracture. Hand/Wrist Course/Dx - Differential Dx/Diagnosis Differential Diagnosis/HQI/PQRI: Contusion, Fracture, Sprain, Strain Provider Diagnosis: Contusion of left wrist Discharge ED - Sign-Out/Discharge Documenting (check all that apply): Patient Departure All imaging exams completed and their final reports reviewed: No - Discharge Plan Condition: Stable Disposition: HOME Patient Education Materials: Contusion in Adults (ED) Referrals: Akiko Rodriguez MD [Primary Care Provider] - - Billing Disposition and Condition Condition: STABLE Disposition: Home
--- NOTE | 2019-07-31 07:29 | UC ---
- Progress Note Progress Note: wet read correct Course/Dx - Diagnoses Provider Diagnoses: Contusion of left wrist Discharge ED - Sign-Out/Discharge Documenting (check all that apply): Post-Discharge Follow Up All imaging exams completed and their final reports reviewed: Yes - Discharge Plan Condition: Stable Disposition: HOME Patient Education Materials: Contusion in Adults (ED) Referrals: Akiko Rodriguez MD [Primary Care Provider] - - Billing Disposition and Condition Condition: STABLE Disposition: Home
== END 2019-07-30 20:24 | disposition home or self-care (01) ==
LOC: UCCORT 18:38
DX: S60.212A Contusion of left wrist, initial encounter (principal); W00.0XXA Fall on same level due to ice and snow, initial encounter; Y92.9 Unspecified place or not applicable
CPT/HCPCS: 99213; G0463